=== PATIENT | male | born 1970 | race Caucasian/White ===

== ENCOUNTER 2020-07-14 09:04 | Observation (INO) | payer BC ==
[2020-07-14] MEDS ORDERED: Nitroglycerin 0.4 MG Tab.SL SL ONE ×2 (09:14→09:38)
[2020-07-14] MEDS ORDERED: Aspirin 81 MG Tab.Chew PO ONE (09:16)
[2020-07-14] MEDS ORDERED: Aspirin 81 MG Tab.Chew ONE (09:17)
[2020-07-14] MEDS ORDERED: Nitroglycerin 0.4 MG Tab.SL ONE (09:18)
[2020-07-14 09:37] LABS: PTT,PARTIAL THROMBOPLSTIN TIME 24.1 SEC (24.5-32.8)
[2020-07-14 09:48] LABS: CHLORIDE,CL 105 mmol/L (98-107); SODIUM,NA 141 mmol/L (136-145)
[2020-07-14] MEDS ORDERED: Pantoprazole 40 MG Vial IVPUSH ONE (10:17)
[2020-07-14] MEDS ORDERED: Ketorolac 15 MG/ML SDV IM ONE (10:18)
--- NOTE | 2020-07-14 10:25 | EDM.PDOC ---
ED HPI GENERAL MEDICAL PROBLEM - General Chief Complaint: Chest Pain Stated Complaint: chest pain Time Seen by Provider: 07/14/20 09:38 Source of Information: Reports: Patient History Limitations: Reports: No Limitations - History of Present Illness INITIAL COMMENTS - FREE TEXT/NARRATIVE: Patient comes in with left sided chest pain that started to develop late last evening and persisted through the night Has radiated at times to left arm/left neck [place] hot/warm periodically but no sweats. No true SOB. Movement did not make pain worse/nor did deep breath. No palpitations. This is the third time he has had this pain. Did have stress test that was negative after last episode Eating/drinking did not change pain. Took one ASA and it seemed to help. No history of CAD/ME. No family history of either. Chews tobacco/non smoker. Drinks around 5 or so mixed drinks/beer daily. Denies chronic medical conditions other than chronic back and bilat knee pain. Employed at [employer]. Chest Pain Score (Numeric/FACES): 7 - Related Data Allergies Allergy/AdvReac Type Severity Reaction Status Date / Time No Known Allergies Allergy Verified 07/14/20 09:26 Home Meds: Home Meds . [No Known Home Meds] 07/15/18 [History] Past Medical History - Past Health History Medical/Surgical History: Denies Medical/Surgical History Musculoskeletal History: Reports: Arthritis, Other (See Below) Other Musculoskeletal History: bilat knee pain, herniated discs to back Psychiatric History: Reports: None - Past Surgical History Musculoskeletal Surgical History: Reports: Other (See Below) Other Musculoskeletal Surgeries/Procedures:: bone marrow injection to knee Social & Family History - Tobacco Use Tobacco Use Status *Q: Current Every Day Tobacco User Tobacco Use Within Last Twelve Months: Snuff/Dip Years of Tobacco use: 20 Packs/Tins Daily: 0.5 Tobacco Use Comment: trying to quit using nicorette Smoking Cessation Information Provided To Patient: Patient Refused - Alcohol Use Alcohol Use History: Yes Days Per Week of Alcohol Use: 7 Number of Drinks Per Day: 5 Total Drinks Per Week: 35 Alcohol Use in Last Twelve Months: Yes Alcohol Use Frequency: Daily - Recreational Drug Use Recreational Drug Use: No Drug Use in Last 12 Months: No ED ROS GENERAL - Review of Systems Review Of Systems: See Below Constitutional: Reports: No Symptoms HEENT: Reports: No Symptoms Respiratory: Reports: No Symptoms Cardiovascular: Reports: Chest Pain. Denies: Dyspnea on Exertion, Edema, Light headedness, Orthopnea, Palpitations, PND, Syncope GI/Abdominal: Reports: No Symptoms : Reports: No Symptoms Musculoskeletal: Reports: Other (chronic back/knee pain is unchanged. Did feel some discomfort left left that preceeded developing the chest pain complaint. The left discomfort resolved. ) Skin: Reports: No Symptoms Neurological: Reports: No Symptoms Psychiatric: Reports: No Symptoms Hematologic/Lymphatic: Reports: No Symptoms ED EXAM, GENERAL - Physical Exam Exam: See Below Exam Limited By: No Limitations General Appearance: Alert, WD/WN, No Apparent Distress Eye Exam: Bilateral Eye: EOMI, PERRL Ears: Normal External Exam, Hearing Grossly Normal Nose: No: Nasal Deformity, Nasal Swelling, Nasal Drainage Throat/Mouth: Normal Lips, Normal Voice, No Airway Compromise Head: Atraumatic, Normocephalic Neck: Supple, Non-Tender, Full Range of Motion Respiratory/Chest: No Respiratory Distress, Lungs Clear, Normal Breath Sounds, No Accessory Muscle Use, Other (Tender with palpation over left pectoral area and left trapezius. Mild tenderness with palpation of left neck SCM muscle) Cardiovascular: Normal Peripheral Pulses, Regular Rate, Rhythm, No Edema, No Murmur GI/Abdominal: Normal Bowel Sounds, Soft, Non-Tender, No Distention (Male) Exam: Deferred Rectal (Males) Exam: Deferred Back Exam: Other (tender with palpation left trapezius). No: CVA Tenderness (L), CVA Tenderness (R), Muscle Spasm Extremities: Normal Inspection, Normal Range of Motion, Non-Tender, No Pedal Edema, Normal Capillary Refill. No: Pippa's Sign, Mottled, Pallor, Redness Neurological: Alert, Oriented, CN II-XII Intact, Normal Cognition, Normal Gait, No Motor/Sensory Deficits Psychiatric: Normal Affect, Normal Mood Skin Exam: Warm, Dry, Intact, Normal Color #1 Interpretation EKG Date: 07/14/20 Time: 09:08 Rhythm: NSR Rate (Beats/Min): 92 [place]: LAD-Left [place] Deviation P-Wave: Present QRS: Normal ST-T: Normal QT: Normal Comparison: NA - No Prior EKG Course - Vital Signs Last Recorded V/S: Last Vital Signs Temp 36.8 C 07/14/20 09:05 Pulse 101 H 07/14/20 09:05 Resp 16 07/14/20 09:05 BP 147/82 H 07/14/20 09:39 Pulse Ox 96 07/14/20 09:05 - Orders/Labs/Meds Orders: Active Orders 24 hr Category Date Time Status Cardiac Monitoring [RC] . DIRECTED Care 07/14/20 09:13 Active EKG Documentation Completion [RC] ASDIRECTED Care 07/14/20 09:13 Active Peripheral IV Care [RC] . DIRECTED Care 07/14/20 09:13 Active Chest 2V [CR] Stat Exams 07/14/20 09:16 Taken ETOH [ETHANOL BLOOD MEDICAL] [CHEM] Stat Lab 07/14/20 10:17 Ordered Sodium Chloride 0.9% @ 125 MLS/HR (1000ml) Med 07/14/20 10:30 Ordered Sodium Chloride 0.9% [Normal Saline] 1,000 ml IV ASDIRECTED Sodium Chloride 0.9% [Saline Flush] Med 07/14/20 09:13 Active 10 ml FLUSH ASDIRECTED PRN Peripheral IV Insertion Adult [OM.PC] Routine Oth 07/14/20 09:13 Ordered EKG 12 Lead [EK] Stat Ther 07/14/20 09:13 Ordered Medication Orders Sodium Chloride (Normal Saline) 1,000 mls @ 125 mls/hr IV ASDIRECTED RAMANA Sodium Chloride (Saline Flush) 10 ml FLUSH ASDIRECTED PRN PRN Reason: Keep Vein Open Labs: Laboratory Tests 07/14/20 07/14/20 07/14/20 Range/Units 09:15 09:15 09:15 WBC 8.2 (4.0-10.2) K/uL RBC 5.33 (4.33-5.41) M/uL Hgb 17.1 H (13.1-16.8) g/dL Hct 48.4 (39.0-49.0) % MCV 90.8 (84.0-98.0) fL MCH 32.1 (28.2-33.3) pg MCHC 35.3 (31.7-36.0) g/dL RDW 12.9 (11.2-14.1) % Plt Count 220 (150-350) K/uL Neut % (Auto) 60.2 (45.0-80.0) % Lymph % (Auto) 31.4 (10.0-50.0) % [place] % (Auto) 6.7 (2.0-14.0) % Eos % (Auto) 1.5 (0.0-5.0) % Baso % (Auto) 0.2 (0.0-2.0) % Neut # (Auto) 4.90 (1.40-7.00) K/uL Lymph # (Auto) 2.56 (0.50-3.50) K/uL [place] # (Auto) 0.55 (0.00-1.00) K/uL Eos # (Auto) 0.12 (0.00-0.50) K/uL Baso # (Auto) 0.02 (0.00-0.20) K/uL PT 9.7 (9.5-12.0) SEC INR 1.0 APTT 24.1 L (24.5-32.8) SEC D-Dimer, Quantitative (0-400) ng/mL Sodium 141 (136-145) mmol/L Potassium 4.0 (3.5-5.1) mmol/L Chloride 105 (98-107) mmol/L Carbon Dioxide 26.1 (21.0-32.0) mmol/L BUN 9 (7-18) mg/dL Creatinine 1.17 (0.51-1.17) mg/dL Est Cr Clr Drug Dosing 75.53 mL/min Estimated GFR (MDRD) > 60 mL/min Glucose 106 H (70-99) mg/dL Lactic Acid (0.4-2.0) mmol/L Calcium 9.2 (8.5-10.1) mg/dL Magnesium 2.3 (1.8-2.4) mg/dL Total Bilirubin 0.5 (0.2-1.0) mg/dL AST 46 H (15-37) U/L ALT 67 (12-78) U/L Alkaline Phosphatase 70 (46-116) IU/L Creatine Kinase 198 (26-308) U/L Creatine Kinase Index 0.3 (0.0-2.5) % CK-MB (CK-2) 0.50 (0.00-3.60) ng/mL Troponin I 0.000 (0.000-0.056) ng/mL Total Protein 7.3 (6.4-8.2) g/dL Albumin 4.2 (3.4-5.0) g/dL TSH, Ultra Sensitive 1.701 (0.358-3.740) mIU/mL 07/14/20 07/14/20 Range/Units 09:15 09:15 WBC (4.0-10.2) K/uL RBC (4.33-5.41) M/uL Hgb (13.1-16.8) g/dL Hct (39.0-49.0) % MCV (84.0-98.0) fL MCH (28.2-33.3) pg MCHC (31.7-36.0) g/dL RDW (11.2-14.1) % Plt Count (150-350) K/uL Neut % (Auto) (45.0-80.0) % Lymph % (Auto) (10.0-50.0) % [place] % (Auto) (2.0-14.0) % Eos % (Auto) (0.0-5.0) % Baso % (Auto) (0.0-2.0) % Neut # (Auto) (1.40-7.00) K/uL Lymph # (Auto) (0.50-3.50) K/uL [place] # (Auto) (0.00-1.00) K/uL Eos # (Auto) (0.00-0.50) K/uL Baso # (Auto) (0.00-0.20) K/uL PT (9.5-12.0) SEC INR APTT (24.5-32.8) SEC D-Dimer, Quantitative < 100 (0-400) ng/mL Sodium (136-145) mmol/L Potassium (3.5-5.1) mmol/L Chloride (98-107) mmol/L Carbon Dioxide (21.0-32.0) mmol/L BUN (7-18) mg/dL Creatinine (0.51-1.17) mg/dL Est Cr Clr Drug Dosing mL/min Estimated GFR (MDRD) mL/min Glucose (70-99) mg/dL Lactic Acid 2.0 (0.4-2.0) mmol/L Calcium (8.5-10.1) mg/dL Magnesium (1.8-2.4) mg/dL Total Bilirubin (0.2-1.0) mg/dL AST (15-37) U/L ALT (12-78) U/L Alkaline Phosphatase (46-116) IU/L Creatine Kinase (26-308) U/L Creatine Kinase Index (0.0-2.5) % CK-MB (CK-2) (0.00-3.60) ng/mL Troponin I (0.000-0.056) ng/mL Total Protein (6.4-8.2) g/dL Albumin (3.4-5.0) g/dL TSH, Ultra Sensitive (0.358-3.740) mIU/mL Meds: Medications Generic Name Dose Route Start Last Admin Trade Name Freq PRN Reason Stop Dose Admin Sodium Chloride 1,000 mls @ 125 mls/hr 07/14/20 10:30 Normal Saline IV ASDIRECTED RAMANA Sodium Chloride 10 ml 07/14/20 09:13 Saline Flush FLUSH ASDIRECTED PRN Keep Vein Open Discontinued Medications Generic Name Dose Route Start Last Admin Trade Name Fremiesha PRN Reason Stop Dose Admin Aspirin 243 mg 07/14/20 09:16 07/14/20 09:18 Aspirin PO 07/14/20 09:17 243 mg ONETIME ONE Administration Aspirin Confirm 07/14/20 09:17 07/14/20 09:39 Aspirin Administered 07/14/20 09:18 Not Given Dose 243 mg .ROUTE .STK-MED ONE Ketorolac Tromethamine 15 mg 07/14/20 10:18 Toradol IM 07/14/20 10:19 ONETIME ONE Nitroglycerin 0.4 mg 07/14/20 09:14 07/14/20 09:19 Nitrostat SL 07/14/20 09:15 0.4 mg ONETIME ONE Administration Nitroglycerin Confirm 07/14/20 09:18 07/14/20 09:39 Nitrostat Administered 07/14/20 09:19 Not Given Dose 0.4 mg .ROUTE .STK-MED ONE Nitroglycerin 0.4 mg 07/14/20 09:38 07/14/20 09:39 Nitrostat SL 07/14/20 09:39 0.4 mg ONETIME ONE Administration Pantoprazole Sodium 40 mg 07/14/20 10:17 Protonix Iv IVPUSH 07/14/20 10:18 ONETIME ONE - Radiology Interpretation Free Text/Narrative:: Chest xray unremarkable per Radiology - Re-Assessments/Exams Free Text/Narrative Re-Assessment/Exam: 07/14/20 10:33 Chest pain protocol initiated. Patient received 1 Nitro which took pain from a 5 down to a 3-4. At worse overnight pain was a 7 per patient. Chest xray and EKG unremarkable. Exam noted that pain complaint reproduced in part by palpation over left pectoral/trapezius/SCM muscles. Labs, including CBC/Chem/Mg/Troponin/DDimer/TSH/ETOH overall unremarkable. Pain currently 2-3. Differential includes GI vs cardiac etiology vs musculoskeletal. Does not appear respiratory based on history/exam. Patient does admit to around 5 alc oholic drinks per day and has history of GERD. Cannot rule out esophageal irritation/spasm. Plan at this time is to admit observation and continue with r/o ME protocol. Departure - Departure Time of Disposition: 10:38 Disposition: Refer to Observation Condition: Good Clinical Impression: Atypical chest pain - Discharge Information *PRESCRIPTION DRUG MONITORING PROGRAM REVIEWED*: Not Applicable *COPY OF PRESCRIPTION DRUG MONITORING REPORT IN PATIENT GUICHO: Not Applicable Referrals: Jina Love NP [Primary Care Provider] - Sepsis Event Note (ED) - Evaluation Sepsis Screening Result: No Definite Risk - Focused Exam Vital Signs: Vital Signs Temp Pulse Resp BP BP Pulse Ox 07/14/20 09:39 147/82 H 07/14/20 09:19 156/103 H 07/14/20 09:05 36.8 C 101 H 16 156/103 H 96 - Problem List & Annotations (1) Atypical chest pain SNOMED Code(s): 792684268 Code(s): R07.89 - OTHER CHEST PAIN Status: Acute Priority: High Annotation/Comment:: Initial cardiac workup in ER unremarkable. No acute changes on labs/EKG/chest xray. Pain complaint in part reproduced by palpation over left chest/upper back/neck. Continue chest pain protocol and telemetry. (2) Alcohol consumption heavy SNOMED Code(s): 95315902 Code(s): Z78.9 - OTHER SPECIFIED HEALTH STATUS Status: Chronic Priority: Medium Annotation/Comment:: Time spent reviewing patient's history of large daily ETOH use and effects of heavy use such as GI distress. (3) Peptic reflux disease SNOMED Code(s): 939709917 Code(s): K21.9 - GASTRO-ESOPHAGEAL REFLUX DISEASE WITHOUT ESOPHAGITIS Status: Chronic Priority: Medium Annotation/Comment:: Not currently under therapy. Protonix ordered. Recommended to cut back ETOH use and consider anti- inflammatory diet. Consider further work-up including EGD, etc. depending on his clinical course and/or if his cardiac work-up is negative as above. - Problem List Review Problem List Initiated/Reviewed/Updated: Yes - My Orders Last 24 Hours: My Active Orders 07/14/20 09:13 Cardiac Monitoring [RC] . DIRECTED EKG Documentation Completion [RC] ASDIRECTED Peripheral IV Care [RC] . DIRECTED Sodium Chloride 0.9% [Saline Flush] 10 ml FLUSH ASDIRECTED PRN Peripheral IV Insertion Adult [OM.PC] Routine EKG 12 Lead [EK] Stat 07/14/20 09:16 Chest 2V [CR] Stat 07/14/20 10:17 ETOH [ETHANOL BLOOD MEDICAL] [CHEM] Stat 07/14/20 10:30 Sodium Chloride 0.9% @ 125 MLS/HR (1000ml) Sodium Chloride 0.9% [Normal Saline] 1,000 ml IV ASDIRECTED - Assessment/Plan Admission H&P: Please use this note as an admission H&P Last 24 Hours: My Active Orders 07/14/20 09:13 Cardiac Monitoring [RC] . DIRECTED EKG Documentation Completion [RC] ASDIRECTED Peripheral IV Care [RC] . DIRECTED Sodium Chloride 0.9% [Saline Flush] 10 ml FLUSH ASDIRECTED PRN Peripheral IV Insertion Adult [OM.PC] Routine EKG 12 Lead [EK] Stat 07/14/20 09:16 Chest 2V [CR] Stat 07/14/20 10:17 ETOH [ETHANOL BLOOD MEDICAL] [CHEM] Stat 07/14/20 10:30 Sodium Chloride 0.9% @ 125 MLS/HR (1000ml) Sodium Chloride 0.9% [Normal Saline] 1,000 ml IV ASDIRECTED Assessment:: as above. Stable and suitable for general supervision Plan: as above. Anticipate discharge tomorrow if cardiac workup is negative and patient's complaint improves.
[2020-07-14] MEDS ORDERED: Diazepam 5 MG Tab PO ONE (10:27)
[2020-07-14] MEDS ORDERED: Ondansetron 4 MG/2 ML SDV IVPUSH PRN (10:50)
[2020-07-14] MEDS ORDERED: Acetaminophen 325 MG Tab PO PRN (10:50)
[2020-07-14] MEDS ORDERED: GI Cocktail Oral Solution 30 ML PO ONE (10:53)
[2020-07-14] MEDS ORDERED: Famotidine 20 MG/2 ML SDV IVPUSH ONE (10:55)
[2020-07-14] MEDS ORDERED: Ketorolac 15 MG/ML SDV IVPUSH PRN (10:56)
[2020-07-14] MEDS ORDERED: Nitroglycerin 0.4 MG Tab.SL SL PRN (10:56)
[2020-07-14] MEDS: Sodium Chloride 0.9% 10 ML Syringe FLUSH PRN ×2 (11:24→12:55)
[2020-07-14] MEDS ORDERED: Diazepam 5 MG Tab ONE (12:52)
[2020-07-14] MEDS: Sodium Chloride 0.9% 1,000 ML IV SCH ×2 (14:28→22:24)
[2020-07-14] MEDS ORDERED: Morphine 2 MG/ML SYRINGE IVPUSH PRN (18:02)
[2020-07-15 08:08] LABS: CHLORIDE,CL 109 mmol/L (98-107); SODIUM,NA 143 mmol/L (136-145)
--- NOTE | 2020-07-15 11:14 | PCM.DCSUM1 ---
Discharge Summary - Hospital Course Brief History: Patient admitted for serial troponins after presenting with left sided chest pain. Diagnosis: Stroke: No - Discharge Data Discharge Date: 07/15/20 Discharge Disposition: Home, Self-Care 01 Condition: Good - Referral to Home Health Primary Care Physician: Jina Love NP - Discharge Diagnosis/Problem(s) (1) Atypical chest pain SNOMED Code(s): 976273519 ICD Code: R07.89 - OTHER CHEST PAIN Status: Acute Priority: High Current Visit: No Problem Details: Initial cardiac workup in ER unremarkable. No acute changes on labs/EKG/chest xray. Pain complaint in part reproduced by palpation over left chest/upper back/neck while in ER. Serial troponin measurements 0.0 No changes suggestive of ischemia on morning EKG. Pain went away for 4 hours last night after Toradol. Has intermittent twinges of pain left chest this morning. Palpation over anterior chest continues to produce soreness and reproduce pain complaint. Suspect musculoskeletal etiology. (2) Alcohol consumption heavy SNOMED Code(s): 05311544 ICD Code: Z78.9 - OTHER SPECIFIED HEALTH STATUS Status: Chronic Priority: Medium Current Visit: No Problem Details: Time spent reviewing with patient large daily ETOH use and effects of heavy use such as GI distress. Recommended to decrease daily ETOH use. (3) Peptic reflux disease SNOMED Code(s): 232860511 ICD Code: K21.9 - GASTRO-ESOPHAGEAL REFLUX DISEASE WITHOUT ESOPHAGITIS Status: Chronic Priority: Medium Current Visit: No Problem Details: Not currently under therapy. Protonix ordered. Recommended to cut back ETOH use and consider anti-inflammatory diet. Consider further work-up including EGD, etc. depending on his clinical course and/or if his cardiac work-up is negative as above. - Patient Summary/Data Hospital Course: Unremarkable course overall. Labs/telemetry unremarkable. Palpation over chest/trapezius continues to reproduce patient's initial pain complaints. He did recall playing around with a new cross bow and trying to pull string into place/thinks that may have triggered the problem. Plan at this time is to discharge home with close follow up by PCP. Did have recent stress test. To discuss with PCP if new stress test is indicated given the recent negative study. Will send home with ER bottle of Toradol to take PRN. Warned not to take other NSAIDS while on Toradol. Has chiropractor appointment in AM - Patient Instructions Diet: Anti-Inflammatory Activity: As Tolerated Driving: May Drive Today Showering/Bathing: May Shower Other/Special Instructions: Follow up in ER for recheck if you have concerns/worsening symptoms. Take tramadol one tab every 6 hours as needed for pain. Remember to not take any motrin/ibuprofen/aleve/naproxyn with this medication as we discussed. Highly recommend anti-inflammatory diet approach as discussed with decreased alcohol consumption and stopping tobacco use. Get a sleep study performed to rule out sleep apnea. Check in with your provider regarding any further planning of testing. Given that you just had a normal stress test she may decide that you do not need a second one performed. - Discharge Plan *PRESCRIPTION DRUG MONITORING PROGRAM REVIEWED*: Not Applicable *COPY OF PRESCRIPTION DRUG MONITORING REPORT IN PATIENT GUICHO: Not Applicable Home Medications: Home Meds . [No Known Home Meds] 07/15/18 [History] Patient Handouts: Chest Wall Pain Forms: ED Department Discharge Referrals: Jina Love NP [Primary Care Provider] - - Discharge Summary/Plan Comment DC Time >30 min.: No - General Info Date of Service: 07/15/20 Admission Dx/Problem (Free Text: Left sided chest/upper back/neck pain Subjective Update: feels improved. Intermittent twinges of discomfort left anterior chest. No association with movement/breathing Functional Status: Reports: Pain Controlled, Tolerating Diet, Ambulating, Urinating - Review of Systems General: Reports: No Symptoms HEENT: Reports: No Symptoms Pulmonary: Reports: No Symptoms Cardiovascular: Reports: Chest Pain. Denies: Palpitations, Dyspnea on Exertion, Orthopnea, Edema, Lightheadedness Gastrointestinal: Reports: No Symptoms Genitourinary: Reports: No Symptoms Musculoskeletal: Reports: Neck Pain, Shoulder Pain Skin: Reports: No Symptoms Neurological: Reports: No Symptoms Psychiatric: Reports: No Symptoms - Patient Data Vitals - Most Recent: Last Vital Signs Temp 35.9 C L 07/15/20 08:00 Pulse 72 07/15/20 08:00 Resp 17 07/15/20 08:00 BP 121/86 07/15/20 08:00 Pulse Ox 96 07/15/20 08:00 Weight - Most Recent: 111.13 kg I&O - Last 24 hours: Intake & Output 07/14/20 07/15/20 07/15/20 22:59 06:59 14:59 Intake Total 1668 6218 640 Output Total 500 1200 Balance 502 307 640 Lab Results - Last 24 hrs: Laboratory Results - last 24 hr 07/14/20 07/15/20 07/15/20 Range/Units 15:40 07:39 07:39 WBC (4.0-10.2) K/uL RBC (4.33-5.41) M/uL Hgb (13.1-16.8) g/dL Hct (39.0-49.0) % MCV (84.0-98.0) fL MCH (28.2-33.3) pg MCHC (31.7-36.0) g/dL RDW (11.2-14.1) % Plt Count (150-350) K/uL Neut % (Auto) (45.0-80.0) % Lymph % (Auto) (10.0-50.0) % [place] % (Auto) (2.0-14.0) % Eos % (Auto) (0.0-5.0) % Baso % (Auto) (0.0-2.0) % Neut # (Auto) (1.40-7.00) K/uL Lymph # (Auto) (0.50-3.50) K/uL [place] # (Auto) (0.00-1.00) K/uL Eos # (Auto) (0.00-0.50) K/uL Baso # (Auto) (0.00-0.20) K/uL Sodium 143 (136-145) mmol/L Potassium 3.9 (3.5-5.1) mmol/L Chloride 109 H (98-107) mmol/L Carbon Dioxide 24.6 (21.0-32.0) mmol/L BUN 10 (7-18) mg/dL Creatinine 1.04 (0.51-1.17) mg/dL Est Cr Clr Drug Dosing 84.98 mL/min Estimated GFR (MDRD) > 60 mL/min Glucose 87 (70-99) mg/dL Calcium 8.3 L (8.5-10.1) mg/dL Total Bilirubin 0.6 (0.2-1.0) mg/dL AST 36 (15-37) U/L ALT 61 (12-78) U/L Alkaline Phosphatase 55 (46-116) IU/L Troponin I 0.000 0.000 (0.000-0.056) ng/mL Total Protein 6.1 L (6.4-8.2) g/dL Albumin 3.5 (3.4-5.0) g/dL 07/15/20 Range/Units 07:39 WBC 5.9 (4.0-10.2) K/uL RBC 5.10 (4.33-5.41) M/uL Hgb 16.3 (13.1-16.8) g/dL Hct 46.9 (39.0-49.0) % MCV 92.0 (84.0-98.0) fL MCH 32.0 (28.2-33.3) pg MCHC 34.8 (31.7-36.0) g/dL RDW 13.1 (11.2-14.1) % Plt Count 201 (150-350) K/uL Neut % (Auto) 59.5 (45.0-80.0) % Lymph % (Auto) 31.8 (10.0-50.0) % [place] % (Auto) 6.4 (2.0-14.0) % Eos % (Auto) 2.0 (0.0-5.0) % Baso % (Auto) 0.3 (0.0-2.0) % Neut # (Auto) 3.52 (1.40-7.00) K/uL Lymph # (Auto) 1.88 (0.50-3.50) K/uL [place] # (Auto) 0.38 (0.00-1.00) K/uL Eos # (Auto) 0.12 (0.00-0.50) K/uL Baso # (Auto) 0.02 (0.00-0.20) K/uL Sodium (136-145) mmol/L Potassium (3.5-5.1) mmol/L Chloride (98-107) mmol/L Carbon Dioxide (21.0-32.0) mmol/L BUN (7-18) mg/dL Creatinine (0.51-1.17) mg/dL Est Cr Clr Drug Dosing mL/min Estimated GFR (MDRD) mL/min Glucose (70-99) mg/dL Calcium (8.5-10.1) mg/dL Total Bilirubin (0.2-1.0) mg/dL AST (15-37) U/L ALT (12-78) U/L Alkaline Phosphatase (46-116) IU/L Troponin I (0.000-0.056) ng/mL Total Protein (6.4-8.2) g/dL Albumin (3.4-5.0) g/dL Med Orders - Current: Current Medications Acetaminophen (Tylenol) 650 mg PO Q4H PRN PRN Reason: Pain (Mild 1-3)/fever Last Admin: 07/14/20 18:00 Dose: 650 mg Documented by: Sodium Chloride (Normal Saline) 1,000 mls @ 125 mls/hr IV ASDIRECTED RAMANA Last Admin: 07/14/20 22:24 Dose: 125 mls/hr Documented by: Ketorolac Tromethamine (Toradol) 15 mg IVPUSH Q6H PRN PRN Reason: Pain Stop: 07/19/20 10:56 Last Admin: 07/14/20 22:28 Dose: 15 mg Documented by: Morphine Sulfate (Morphine) 2 mg IVPUSH Q2H PRN PRN Reason: Pain Nitroglycerin (Nitrostat) 0.4 mg SL Q5M PRN PRN Reason: Chest Pain Last Admin: 07/14/20 17:57 Dose: 0.4 mg Documented by: Ondansetron HCl (Zofran) 4 mg IVPUSH Q6H PRN PRN Reason: Nausea/Vomiting Sodium Chloride (Saline Flush) 10 ml FLUSH ASDIRECTED PRN PRN Reason: Keep Vein Open Last Admin: 07/14/20 12:55 Dose: 10 ml Documented by: Discontinued Medications Al Hydroxide/Mg Hydroxide (Gi Cocktail) 30 ml PO ONETIME ONE Stop: 07/14/20 10:54 Last Admin: 07/14/20 11:24 Dose: 30 ml Documented by: Aspirin (Aspirin) 243 mg PO ONETIME ONE Stop: 07/14/20 09:17 Last Admin: 07/14/20 09:18 Dose: 243 mg Documented by: Aspirin (Aspirin) Confirm Administered Dose 243 mg .ROUTE .STK-MED ONE Stop: 07/14/20 09:18 Last Admin: 07/14/20 09:39 Dose: Not Given Documented by: Diazepam (Valium.) 5 mg PO ONETIME ONE Stop: 07/14/20 10:28 Last Admin: 07/14/20 12:55 Dose: 5 mg Documented by: Diazepam (Valium.) Confirm Administered Dose 5 mg .ROUTE .STK-MED ONE Stop: 07/14/20 12:53 Last Admin: 07/14/20 14:28 Dose: Not Given Documented by: Famotidine (Pepcid) 20 mg IVPUSH ONETIME ONE Stop: 07/14/20 10:56 Last Admin: 07/14/20 11:24 Dose: 20 mg Documented by: Ketorolac Tromethamine (Toradol) 15 mg IM ONETIME ONE Stop: 07/14/20 10:19 Last Admin: 07/14/20 12:55 Dose: 15 mg Documented by: Nitroglycerin (Nitrostat) 0.4 mg SL ONETIME ONE Stop: 07/14/20 09:15 Last Admin: 07/14/20 09:19 Dose: 0.4 mg Documented by: Nitroglycerin (Nitrostat) Confirm Administered Dose 0.4 mg .ROUTE .STK-MED ONE Stop: 07/14/20 09:19 Last Admin: 07/14/20 09:39 Dose: Not Given Documented by: Nitroglycerin (Nitrostat) 0.4 mg SL ONETIME ONE Stop: 07/14/20 09:39 Last Admin: 07/14/20 09:39 Dose: 0.4 mg Documented by: Pantoprazole Sodium (Protonix Iv) 40 mg IVPUSH ONETIME ONE Stop: 07/14/20 10:18 Last Admin: 07/14/20 11:24 Dose: 40 mg Documented by: - Exam General: Reports: Alert, Oriented, Cooperative, No Acute Distress HEENT: Reports: Pupils Equal, Pupils Reactive, EOMI, Mucous Membr. Moist/[place] Neck: Reports: Supple, Other (mild tenderness with palpation over left SCM muscle) Lungs: Reports: Clear to Auscultation, Normal Respiratory Effort Cardiovascular: Reports: Regular Rate, Regular Rhythm, Other (palpation over left pectoral muscles reveals tenderness that in part reproduces patient's pain complaint) GI/Abdominal Exam: Soft Back Exam: Reports: Other (has some tenderness with palpation over left trapezius muscle). Denies: Muscle Spasm Extremities: Normal Range of Motion, Normal Capillary Refill Skin: Reports: Warm, Dry Neurological: Reports: No New Focal Deficit #1 Interpretation EKG Date: 07/15/20 Time: 09:59 Rhythm: NSR Rate (Beats/Min): 79 [place]: Normal P-Wave: Present QRS: Normal ST-T: Normal QT: Normal Comparison: No Change
== END 2020-07-15 11:35 | disposition home or self-care (01) ==
LOC: LL.ED 09:04 → LL.MS 10:25 → UNDOADMOB 10:25 → UNDODISOB 07-15 11:35
PROVIDERS: ADMIT Emergency Medicine; ATTEND Emergency Medicine
DX: R07.89 Other chest pain (principal); K21.9 Gastro-esophageal reflux disease without esophagitis; F17.220 Nicotine dependence, chewing tobacco, uncomplicated; Z72.89 Other problems related to lifestyle
CPT/HCPCS: 36415; 71046; 80053; 80307; 82550; 82553; 83605; 83735; 84443; 84484; 85025; 85379; 85610; 85730; 93005; 96372; 96374; 96375; 99285; A9270; C9113; G0378; J1885; J3490; J7030; 93010; 99217; 99219

== ENCOUNTER 2021-05-20 11:48 | Emergency (ER) | payer BC ==
[2021-05-20] MEDS ORDERED: Sodium Chloride 0.9% 10 ML Syringe FLUSH PRN (11:51)
[2021-05-20] MEDS ORDERED: Aspirin 81 MG Tab.Chew PO ONE (11:53)
[2021-05-20 12:34] LABS: CHLORIDE,CL 103 mmol/L (98-107); SODIUM,NA 142 mmol/L (136-145)
[2021-05-20 12:36] LABS: ANION GAP 15.8 meq/L (7-15)
[2021-05-20 12:38] LABS: RESPIRATORY SYNCYTIAL VIR NAA NEGATIVE (NEGATIVE)
[2021-05-20 12:40] LABS: CORONAVIRUS COVID-19 NAA POSITIVE (NEGATIVE)
== END 2021-05-20 14:20 | disposition home or self-care (01) ==
LOC: LL.ED 11:48
DX: U07.1 COVID-19 (principal)
CPT/HCPCS: 0241U; 36415; 71045; 80053; 83735; 84100; 84484; 85025; 85379; 85610; 85730; 86140; 93005; 99285-25; A9270-GY

== ENCOUNTER 2023-03-16 07:50 | Inpatient (IN) | payer BC ==
[2023-03-16 08:18] LABS: BASOPHILS ABSOLUTE AUTO 0.04 K/uL (0.00-0.20); BASOPHILS PERCENT AUTO 0.4 % (0.0-2.0); EOSINOPHILS ABSOLUTE AUTO 0.07 K/uL (0.00-0.50); EOSINOPHILS PERCENT AUTO 0.7 % (0.0-5.0); HEMATOCRIT 40.3 % (39.0-49.0); HEMOGLOBIN 14.4 g/dL (13.1-16.8); LYMPHOCYTES ABSOLUTE AUTO 0.92 K/uL (0.50-3.50); LYMPHOCYTES PERCENT AUTO 9.1 % (10.0-50.0); MEAN CORPUSCULAR HEMOGLOBIN 33.5 pg (28.2-33.3); MEAN CORPUSCULAR HGB CONC 35.7 g/dL (31.7-36.0); MEAN CORPUSCULAR VOLUME 93.7 fL (84.0-98.0); MONOCYTES PERCENT AUTO 8.9 % (2.0-14.0); NEUTROPHILS ABSOLUTE AUTO 8.15 K/uL (1.40-7.00); NEUTROPHILS PERCENT AUTO 80.9 % (45.0-80.0); PLATELET COUNT,PLT 168 K/uL (150-350); RED CELL DISTRIBUTION WIDTH 13.7 % (11.2-14.1); WHITE BLOOD CELL COUNT,WBC 10.1 K/uL (4.0-10.2)
[2023-03-16 08:49] LABS: ALBUMIN 3.1 g/dL (3.4-5.0); BILIRUBIN TOTAL 3.8 mg/dL (0.2-1.0); CALCIUM 8.4 mg/dL (8.5-10.1); CARBON DIOXIDE,CO2 25.5 mmol/L (21.0-32.0); CREATININE 1.31 mg/dL (0.51-1.17); EST CRCL DRUG DOSING (CG) 63.09 mL/min; MAGNESIUM 1.7 mg/dL (1.8-2.4); POTASSIUM,K 4.4 mmol/L (3.5-5.1); PROTEIN TOTAL,TP 6.3 g/dL (6.4-8.2)
[2023-03-16 08:53] LABS: ANION GAP 13.9 meq/L (7-15)
[2023-03-16] MEDS ORDERED: Lidocaine 2% HCl 11 ML Jelly Filled Syringe TOP ONE (08:59)
[2023-03-16] MEDS ORDERED: Furosemide 40 MG/4 ML VIAL IVPUSH ONE (09:10)
[2023-03-16] MEDS: Sodium Chloride 0.9% 10 ML Syringe FLUSH PRN ×2 (09:20→11:36)
[2023-03-16 10:06] LABS: APPEARANCE,URINE SLIGHTLY CLOUDY; BILIRUBIN,URINE NEGATIVE (NEGATIVE); COLOR,URINE DARK YELLOW; GLUCOSE,URINE NEGATIVE (NEGATIVE); KETONES,URINE NEGATIVE (NEGATIVE); LEUKOCYTE ESTERASE,URINE NEGATIVE (NEGATIVE); NITRITE,URINE NEGATIVE (NEGATIVE); OCCULT BLOOD,URINE NEGATIVE (NEGATIVE); PH,URINE 5.5 (5.0-9.0); PROTEIN,URINE NEGATIVE (NEGATIVE); UROBILINOGEN,URINE 0.2 E.U./dL (0.2-1.0)
[2023-03-16] MEDS ORDERED: Iopamidol 612 MG/ML 100 ML Bottle IVPUSH ONE (10:17)
[2023-03-16] MEDS ORDERED: Thiamine 100 MG Tab PO ONE (10:54)
[2023-03-16 12:58] LABS: INR 1.3 (0.9-1.1); PROTHROMBIN TIME 12.8 SEC (9.0-11.1)
[2023-03-16] MEDS ORDERED: Spironolactone 25 MG Tab PO SCH (13:00)
[2023-03-16] MEDS ORDERED: Lactulose Soln 10 GM/15 ML 30 ML UD Cup PO ONE (14:25)
[2023-03-16] MEDS ORDERED: Lactulose Soln 10 GM/15 ML 30 ML UD Cup PO SCH (18:00)
== END 2023-03-16 17:31 | DRG 280 ==
LOC: LL.ED 07:50 → LL.MS 13:51
PROVIDERS: ADMIT Emergency Medicine; ATTEND Emergency Medicine
DX: K70.31 Alcoholic cirrhosis of liver with ascites (principal); E87.1 Hypo-osmolality and hyponatremia; M54.9 Dorsalgia, unspecified; G89.29 Other chronic pain; K21.9 Gastro-esophageal reflux disease without esophagitis; E78.00 Pure hypercholesterolemia, unspecified; E66.9 Obesity, unspecified; F10.20 Alcohol dependence, uncomplicated; E83.42 Hypomagnesemia; N18.9 Chronic kidney disease, unspecified; R09.02 Hypoxemia; Z87.891 Personal history of nicotine dependence; Z79.899 Other long term (current) drug therapy; Z68.41 Body mass index [BMI] 40.0-44.9, adult
CPT/HCPCS: 36415; 71046; 74177; 80053; 80307; 81003; 82140; 83605; 83735; 83880; 84484; 85025; 85610; 93005; 94761; A9270-GY; J1940; J3475; J3490; Q9967

== ENCOUNTER 2023-04-15 10:55 | Emergency (ER) | payer BC ==
[2023-04-15] MEDS ORDERED: Sodium Chloride 0.9% 10 ML Syringe FLUSH PRN (11:20)
[2023-04-15 11:33] LABS: BASOPHILS ABSOLUTE AUTO 0.02 K/uL (0.00-0.20); BASOPHILS PERCENT AUTO 0.1 % (0.0-2.0); EOSINOPHILS ABSOLUTE AUTO 0.01 K/uL (0.00-0.50); EOSINOPHILS PERCENT AUTO 0.1 % (0.0-5.0); HEMOGLOBIN 12.7 g/dL (13.1-16.8); LYMPHOCYTES ABSOLUTE AUTO 1.44 K/uL (0.50-3.50); LYMPHOCYTES PERCENT AUTO 9.6 % (10.0-50.0); MEAN CORPUSCULAR HEMOGLOBIN 33.2 pg (28.2-33.3); MEAN CORPUSCULAR HGB CONC 34.3 g/dL (31.7-36.0); MEAN CORPUSCULAR VOLUME 96.6 fL (84.0-98.0); MONOCYTES ABSOLUTE AUTO 1.03 K/uL (0.00-1.00); MONOCYTES PERCENT AUTO 6.9 % (2.0-14.0); NEUTROPHILS ABSOLUTE AUTO 12.47 K/uL (1.40-7.00); NEUTROPHILS PERCENT AUTO 83.3 % (45.0-80.0); PLATELET COUNT,PLT 147 K/uL (150-350); RED BLOOD CELL COUNT 3.83 M/uL (4.33-5.41); RED CELL DISTRIBUTION WIDTH 13.7 % (11.2-14.1)
[2023-04-15 11:54] LABS: BILIRUBIN TOTAL 1.8 mg/dL (0.2-1.0); CREATININE 2.65 mg/dL (0.51-1.17); EST CRCL DRUG DOSING (CG) 31.19 mL/min; MAGNESIUM 2.1 mg/dL (1.8-2.4); POTASSIUM,K 4.6 mmol/L (3.5-5.1); PROTEIN TOTAL,TP 6.7 g/dL (6.4-8.2)
[2023-04-15 11:55] LABS: ANION GAP 15.6 meq/L (7-15)
[2023-04-15] MEDS: Sodium Chloride 0.9% 1,000 ML IV ONE ×2 (13:12→14:20)
[2023-04-15 13:26] LABS: BILIRUBIN,URINE NEGATIVE (NEGATIVE); COLOR,URINE DARK YELLOW; GLUCOSE,URINE NEGATIVE (NEGATIVE); KETONES,URINE NEGATIVE (NEGATIVE); LEUKOCYTE ESTERASE,URINE NEGATIVE (NEGATIVE); NITRITE,URINE NEGATIVE (NEGATIVE); OCCULT BLOOD,URINE NEGATIVE (NEGATIVE); PROTEIN,URINE NEGATIVE (NEGATIVE); UROBILINOGEN,URINE 0.2 E.U./dL (0.2-1.0)
[2023-04-15 13:28] LABS: APPEARANCE,URINE CLEAR
== END 2023-04-15 15:28 | disposition home or self-care (01) ==
LOC: LL.ED 10:55
DX: N28.9 Disorder of kidney and ureter, unspecified (principal); Z87.891 Personal history of nicotine dependence; E66.9 Obesity, unspecified; Z68.37 Body mass index [BMI] 37.0-37.9, adult
CPT/HCPCS: 36415; 80053; 81003; 82140; 83605; 83735; 85025; 96360; 96361; 99283-25; J7030

== ENCOUNTER 2024-02-18 20:37 | Emergency (ER) | payer BC ==
[2024-02-18] MEDS: LORazepam 1 MG Tab PO ONE (21:06)
[2024-02-18] MEDS: OLANZapine 10 MG Vial IM ONE (22:30)
[2024-02-18] MEDS: LORazepam 2 MG/ML SDV IM ONE (22:30)
[2024-02-18 22:46] LABS: BASOPHILS ABSOLUTE AUTO 0.01 K/uL (0.00-0.20); BASOPHILS PERCENT AUTO 0.2 % (0.0-2.0); EOSINOPHILS ABSOLUTE AUTO 0.01 K/uL (0.00-0.50); EOSINOPHILS PERCENT AUTO 0.2 % (0.0-5.0); HEMATOCRIT 39.4 % (39.0-49.0); HEMOGLOBIN 13.7 g/dL (13.1-16.8); LYMPHOCYTES PERCENT AUTO 12.3 % (10.0-50.0); MEAN CORPUSCULAR HEMOGLOBIN 31.4 pg (28.2-33.3); MEAN CORPUSCULAR HGB CONC 34.8 g/dL (31.7-36.0); MEAN CORPUSCULAR VOLUME 90.2 fL (84.0-98.0); MONOCYTES ABSOLUTE AUTO 0.51 K/uL (0.00-1.00); MONOCYTES PERCENT AUTO 7.9 % (2.0-14.0); NEUTROPHILS ABSOLUTE AUTO 5.15 K/uL (1.40-7.00); NEUTROPHILS PERCENT AUTO 79.4 % (45.0-80.0); PLATELET COUNT,PLT 113 K/uL (150-350); RED BLOOD CELL COUNT 4.37 M/uL (4.33-5.41); RED CELL DISTRIBUTION WIDTH 15.3 % (11.2-14.1); WHITE BLOOD CELL COUNT,WBC 6.5 K/uL (4.0-10.2)
[2024-02-18 23:00] LABS: INR 1.2 (0.9-1.1); PROTHROMBIN TIME 12.3 SEC (9.0-11.1)
[2024-02-18 23:13] LABS: ALANINE AMINOTRANSFERASE,ALT 35 U/L (12-78); ALBUMIN 3.7 g/dL (3.4-5.0); ALKALINE PHOSPHATASE 102 IU/L (46-116); ASPARTATE AMNIOTRANSFERASE,AST 30 U/L (15-37); BILIRUBIN TOTAL 2.3 mg/dL (0.2-1.0); BLOOD UREA NITROGEN,BUN 7 mg/dL (7-18); CALCIUM 8.6 mg/dL (8.5-10.1); CARBON DIOXIDE,CO2 28.6 mmol/L (21.0-32.0); CHLORIDE,CL 103 mmol/L (98-107); CREATININE 1.19 mg/dL (0.51-1.17); GLUCOSE RANDOM 110 mg/dL (70-99); PROTEIN TOTAL,TP 6.3 g/dL (6.4-8.2); SODIUM,NA 142 mmol/L (136-145)
[2024-02-18 23:14] LABS: ANION GAP 13.2 meq/L (7-15); ESTIMATED GFR 73 mL/min (>=60); POTASSIUM,K 2.8 mmol/L (3.5-5.1)
[2024-02-18] MEDS: Potassium Bicarbonate/Cit Ac 20 MEQ Effervescent Tab PO ONE (23:26)
[2024-02-19] MEDS: Potassium Bicarbonate/Cit Ac 20 MEQ Effervescent Tab PO ONE ×2 (00:09→00:35)
== END 2024-02-19 02:00 | disposition home or self-care (01) ==
LOC: LL.ED 20:37
DX: F41.9 Anxiety disorder, unspecified (principal); E87.6 Hypokalemia; F30.9 Manic episode, unspecified; E66.9 Obesity, unspecified; Z79.899 Other long term (current) drug therapy
CPT/HCPCS: 36415 ×2; 80053; 84132; 84443; 85025; 85610; 96372 ×2; 99283; 99284; A9270 ×4; J2060; J2405

== ENCOUNTER 2024-03-01 12:29 | Inpatient (IN) | payer BC ==
[2024-03-01 12:48] LABS: BASOPHILS ABSOLUTE AUTO 0.02 K/uL (0.00-0.20); BASOPHILS PERCENT AUTO 0.3 % (0.0-2.0); EOSINOPHILS ABSOLUTE AUTO 0.01 K/uL (0.00-0.50); EOSINOPHILS PERCENT AUTO 0.1 % (0.0-5.0); HEMATOCRIT 38.7 % (39.0-49.0); HEMOGLOBIN 13.3 g/dL (13.1-16.8); LYMPHOCYTES ABSOLUTE AUTO 0.61 K/uL (0.50-3.50); MEAN CORPUSCULAR HEMOGLOBIN 31.7 pg (28.2-33.3); MEAN CORPUSCULAR HGB CONC 34.4 g/dL (31.7-36.0); MEAN CORPUSCULAR VOLUME 92.4 fL (84.0-98.0); MONOCYTES ABSOLUTE AUTO 0.47 K/uL (0.00-1.00); MONOCYTES PERCENT AUTO 6.2 % (2.0-14.0); NEUTROPHILS ABSOLUTE AUTO 6.48 K/uL (1.40-7.00); NEUTROPHILS PERCENT AUTO 85.4 % (45.0-80.0); PLATELET COUNT,PLT 121 K/uL (150-350); RED BLOOD CELL COUNT 4.19 M/uL (4.33-5.41); RED CELL DISTRIBUTION WIDTH 15.6 % (11.2-14.1); WHITE BLOOD CELL COUNT,WBC 7.6 K/uL (4.0-10.2)
[2024-03-01 13:07] LABS: ALANINE AMINOTRANSFERASE,ALT 23 U/L (12-78); ALBUMIN 3.8 g/dL (3.4-5.0); ALKALINE PHOSPHATASE 105 IU/L (46-116); ANION GAP 16.7 meq/L (7-15); ASPARTATE AMNIOTRANSFERASE,AST 27 U/L (15-37); BLOOD UREA NITROGEN,BUN 5 mg/dL (7-18); CALCIUM 9.2 mg/dL (8.5-10.1); CARBON DIOXIDE,CO2 24.8 mmol/L (21.0-32.0); CHLORIDE,CL 104 mmol/L (98-107); CREATININE 1.41 mg/dL (0.51-1.17); GLUCOSE RANDOM 112 mg/dL (70-99); POTASSIUM,K 3.5 mmol/L (3.5-5.1); PROTEIN TOTAL,TP 6.3 g/dL (6.4-8.2); SODIUM,NA 142 mmol/L (136-145)
[2024-03-01 13:16] LABS: ESTIMATED GFR 59 mL/min (>=60)
[2024-03-01 14:29] LABS: APPEARANCE,URINE SLIGHTLY CLOUDY; BILIRUBIN,URINE NEGATIVE (NEGATIVE); COLOR,URINE YELLOW; GLUCOSE,URINE NEGATIVE (NEGATIVE); KETONES,URINE TRACE mg/dL (NEGATIVE); LEUKOCYTE ESTERASE,URINE NEGATIVE (NEGATIVE); NITRITE,URINE NEGATIVE (NEGATIVE); OCCULT BLOOD,URINE NEGATIVE (NEGATIVE); PROTEIN,URINE NEGATIVE (NEGATIVE); UROBILINOGEN,URINE 0.2 E.U./dL (0.2-1.0)
[2024-03-01] MEDS: Sodium Chloride 0.9% 1,000 ML IV ONE ×2 (14:32→16:09)
[2024-03-01 14:37] LABS: AMPHETAMINES SCREEN, URINE NEGATIVE (NEGATIVE); BARBITURATE SCREEN,URINE NEGATIVE (NEGATIVE); BENZODIAZEPINES SCREEN,URINE NEGATIVE (NEGATIVE); BUPRENORPHINE SCREEN,URINE NEGATIVE (NEGATIVE); COCAINE METABOLITES,URINE NEGATIVE (NEGATIVE); EDDP,URINE SCREEN NEGATIVE (NEGATIVE); METHAMPHETAMINES SCREEN, URINE NEGATIVE (NEGATIVE); OXYCODONE SCREEN,URINE NEGATIVE (NEGATIVE); TCA SCREEN,URINE NEGATIVE (NEGATIVE); THC SCREEN,URINE 50 NG/ML POSITIVE (NEGATIVE)
[2024-03-01] MEDS: Piperacillin/Tazobactam 3.375 GM in Sodium Chloride 0.9% 100 ML IV SCH (14:43)
[2024-03-01] MEDS ORDERED: METAXALONE 800 MG PO PRN (15:35)
[2024-03-01] MEDS: Sodium Chloride 0.9% 500 ML IV SCH (17:10)
[2024-03-01 18:33] LABS: LACTIC ACID 1.5 mmol/L (0.4-2.0)
[2024-03-01] MEDS: Ondansetron 4 MG/2 ML SDV IVPUSH PRN (18:39)
[2024-03-01] MEDS: Sodium Chloride 0.9% 10 ML Syringe FLUSH PRN (19:50)
[2024-03-01] MEDS ORDERED: Piperacillin/Tazobactam 3.375 GM in Sodium Chloride 0.9% 100 ML IV SCH (21:00)
[2024-03-02] MEDS: Ibuprofen 600 MG Tab PO PRN (01:34)
[2024-03-02 06:42] LABS: BASOPHILS ABSOLUTE AUTO 0.01 K/uL (0.00-0.20); BASOPHILS PERCENT AUTO 0.2 % (0.0-2.0); EOSINOPHILS ABSOLUTE AUTO 0.09 K/uL (0.00-0.50); EOSINOPHILS PERCENT AUTO 1.6 % (0.0-5.0); HEMATOCRIT 35.3 % (39.0-49.0); HEMOGLOBIN 12.1 g/dL (13.1-16.8); LYMPHOCYTES ABSOLUTE AUTO 1.66 K/uL (0.50-3.50); LYMPHOCYTES PERCENT AUTO 28.9 % (10.0-50.0); MEAN CORPUSCULAR HEMOGLOBIN 32.1 pg (28.2-33.3); MEAN CORPUSCULAR HGB CONC 34.3 g/dL (31.7-36.0); MEAN CORPUSCULAR VOLUME 93.6 fL (84.0-98.0); MONOCYTES ABSOLUTE AUTO 0.51 K/uL (0.00-1.00); MONOCYTES PERCENT AUTO 8.9 % (2.0-14.0); NEUTROPHILS ABSOLUTE AUTO 3.47 K/uL (1.40-7.00); NEUTROPHILS PERCENT AUTO 60.4 % (45.0-80.0); PLATELET COUNT,PLT 105 K/uL (150-350); RED BLOOD CELL COUNT 3.77 M/uL (4.33-5.41); RED CELL DISTRIBUTION WIDTH 15.6 % (11.2-14.1); WHITE BLOOD CELL COUNT,WBC 5.7 K/uL (4.0-10.2)
[2024-03-02 07:09] LABS: ANION GAP 11.9 meq/L (7-15); CALCIUM 8.5 mg/dL (8.5-10.1); CARBON DIOXIDE,CO2 26.4 mmol/L (21.0-32.0); CREATININE 0.93 mg/dL (0.51-1.17); EST CRCL DRUG DOSING (CG) 87.85 mL/min; POTASSIUM,K 3.3 mmol/L (3.5-5.1)
[2024-03-02] MEDS: ALPRAZolam 0.25 MG Tab PO PRN (08:17)
[2024-03-02] MEDS: OLANZapine 5 MG Tab.DIS PO SCH (08:17)
[2024-03-02] MEDS: oxyCODONE 5 MG Tab PO PRN (08:53)
[2024-03-02] MEDS: Enoxaparin 40 MG/0.4 ML Syringe SUBCUT SCH (08:54)
[2024-03-02] MEDS: Prochlorperazine 10 MG/2 ML SDV IVPUSH PRN (14:12)
[2024-03-03 09:32] LABS: ALBUMIN 3.1 g/dL (3.4-5.0); BILIRUBIN TOTAL 1.8 mg/dL (0.2-1.0); CALCIUM 8.7 mg/dL (8.5-10.1); CARBON DIOXIDE,CO2 30.1 mmol/L (21.0-32.0); CREATININE 1.15 mg/dL (0.51-1.17); EST CRCL DRUG DOSING (CG) 71.04 mL/min; POTASSIUM,K 3.4 mmol/L (3.5-5.1); PROTEIN TOTAL,TP 5.4 g/dL (6.4-8.2)
[2024-03-03 09:33] LABS: ANION GAP 11.3 meq/L (7-15)
[2024-03-03 09:40] LABS: BASOPHILS ABSOLUTE AUTO 0.02 K/uL (0.00-0.20); BASOPHILS PERCENT AUTO 0.5 % (0.0-2.0); EOSINOPHILS ABSOLUTE AUTO 0.14 K/uL (0.00-0.50); EOSINOPHILS PERCENT AUTO 3.4 % (0.0-5.0); HEMATOCRIT 38.2 % (39.0-49.0); HEMOGLOBIN 12.8 g/dL (13.1-16.8); LYMPHOCYTES ABSOLUTE AUTO 1.66 K/uL (0.50-3.50); LYMPHOCYTES PERCENT AUTO 40.2 % (10.0-50.0); MEAN CORPUSCULAR HEMOGLOBIN 31.8 pg (28.2-33.3); MEAN CORPUSCULAR HGB CONC 33.5 g/dL (31.7-36.0); MEAN CORPUSCULAR VOLUME 94.8 fL (84.0-98.0); MONOCYTES ABSOLUTE AUTO 0.35 K/uL (0.00-1.00); MONOCYTES PERCENT AUTO 8.5 % (2.0-14.0); NEUTROPHILS ABSOLUTE AUTO 1.96 K/uL (1.40-7.00); NEUTROPHILS PERCENT AUTO 47.4 % (45.0-80.0); PLATELET COUNT,PLT 100 K/uL (150-350); RED BLOOD CELL COUNT 4.03 M/uL (4.33-5.41); RED CELL DISTRIBUTION WIDTH 15.6 % (11.2-14.1); WHITE BLOOD CELL COUNT,WBC 4.1 K/uL (4.0-10.2)
== END 2024-03-03 12:36 | disposition home or self-care (01) | DRG 720 ==
LOC: LL.ED 12:29 → LL.MS 14:48
PROVIDERS: ADMIT Nurse Practitioner Family; ATTEND Nurse Practitioner Family
DX: A41.9 Sepsis, unspecified organism (principal); E66.9 Obesity, unspecified; M81.0 Age-related osteoporosis without current pathological fracture; G89.29 Other chronic pain; M54.9 Dorsalgia, unspecified; Z68.27 Body mass index [BMI] 27.0-27.9, adult; E78.00 Pure hypercholesterolemia, unspecified; E83.42 Hypomagnesemia; H54.7 Unspecified visual loss; K21.9 Gastro-esophageal reflux disease without esophagitis; F30.9 Manic episode, unspecified; Z79.899 Other long term (current) drug therapy; Z98.890 Other specified postprocedural states
CPT/HCPCS: 36415; 70450; 71046; 80048; 80053; 80305-QW; 81003; 83605; 85025; 87040; 99285; A9270-GY; J0780; J1650; J2405; J2543; J3490; J7030; J7040

== ENCOUNTER 2024-03-04 12:32 | Emergency (ER) | payer BC | END 2024-03-04 13:20 | disposition home or self-care (01) | LOC: LL.ED 12:32 | DX: F30.9 Manic episode, unspecified (principal); Z79.899 Other long term (current) drug therapy | CPT/HCPCS: 99284 ==